=== PATIENT | female | born 2000 | race Hispanic/Latino ===

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

== ENCOUNTER → 2019-12-20 | Outpatient (CLI) | payer MEDICAID | END | disposition home or self-care (01) | LOC: RAH 08:31 | PROVIDERS: ATTEND Thoracic Surgery (Cardiothoracic Vascular Surgery) | DX: I51.7 Cardiomegaly (principal); R01.1 Cardiac murmur, unspecified; Q24.4 Congenital subaortic stenosis | CPT/HCPCS: 93306; 93356 ==

== ENCOUNTER 2022-03-28 18:27 | Emergency (ER) | payer MEDICAID ==
[~2022-03-28] VITALS: Ht 157.5 cm; Wt 81.6 kg
[2022-03-28 20:04] VITALS: BP 137/82
[2022-03-28] MEDS ORDERED: LIDOCAINE HCL 1% 20 ML VIAL ONE (20:13)
[2022-03-28] MEDS ORDERED: IBUP-1493 PO (20:48)
== END 2022-03-28 21:02 | disposition home or self-care (01) ==
LOC: EDH 18:27
DX: S62.525A Nondisplaced fracture of distal phalanx of left thumb, initial encounter for closed fracture (principal); W18.39XA Other fall on same level, initial encounter; Y93.61 Activity, american tackle football; Y92.89 Other specified places as the place of occurrence of the external cause; Y99.8 Other external cause status
CPT/HCPCS: 29125; 73140

== ENCOUNTER 2022-09-27 16:36 | Emergency (ER) | payer MEDICAID ==
[~2022-09-27] VITALS: Ht 149.9 cm; Wt 87.5 kg
[~2022-09-27 16:36] MED LIST: IBUP-1493 PO
[2022-09-27 19:47] LABS: HEMATOCRIT 38.9 % (36-48); MEAN CORPUSCULAR HEMOGLOBIN 30.7 pg (27.0-33.0); MEAN CORPUSCULAR HGB CONC 33.9 g/dL (32.0-36.0); MEAN CORPUSCULAR VOLUME 90.5 fL (79-99); NUCLEATED RED BLOOD CELLS 0.4 % (0.0-0.19); RED BLOOD CELL COUNT(AUTO) 4.3 MIL/uL (4.00-5.50); RED CELL DISTRIBUTION WIDTH 12.6 % (11.0-15.5); WHITE BLOOD COUNT (AUTO) 8.5 K/uL (4.8-10.8)
[2022-09-27 19:55] LABS: APPEARANCE,URINE CLEAR (CLEAR); BILIRUBIN,URINE NEGATIVE (NEGATIVE); COLOR,URINE COLORLESS (YELLOW); GLUCOSE, URINE (UA) NEGATIVE (NEGATIVE); KETONES,URINE NEGATIVE (NEGATIVE); LEUKOCYTE ESTERASE ,URINE 75 Leu/uL (NEGATIVE); NITRATE,URINE NEGATIVE (NEGATIVE); OCCULT BLOOD,URINE NEGATIVE (NEGATIVE); PROTEIN,URINE NEGATIVE (NEGATIVE); UROBILINOGEN,URINE 0.2 mg/dL (0.2-1.0)
[2022-09-27 19:56] LABS: ADD UA MICROSCOPIC YES
[2022-09-27 20:01] LABS: CREATININE 0.6 mg/dL (0.5-1.5)
[2022-09-27 20:05] LABS: ALBUMIN 3.8 g/dL (3.5-5.0); BILIRUBIN,TOTAL 0.1 mg/dL (0.2-1.0)
[2022-09-27 20:07] LABS: RBC,URINE 0-1 /HPF (0-1); SQUAMOUS EPITHELIAL CELL,UR RARE /HPF (0-2)
[2022-09-27 21:11] VITALS: BP 126/66; PULSE 82; RESP 16; O2SAT 100
[2022-09-27] MEDS ORDERED: FAMO40OR5 PO (22:50)
== END 2022-09-27 23:05 | disposition home or self-care (01) ==
LOC: EDH 16:36
DX: R07.89 Other chest pain (principal); N39.0 Urinary tract infection, site not specified; G80.9 Cerebral palsy, unspecified; I45.10 Unspecified right bundle-branch block
CPT/HCPCS: 36415; 71045; 80053; 81001; 83690; 83735; 83880; 84484; 84703; 85027; 87088; 93005